=== PATIENT | female | born 1970 | race Caucasian/White ===

== ENCOUNTER → 2016-07-02 | Outpatient (CLI) | payer OTHER ==
[2016-07-02 12:48] LABS: BASOPHILS % (AUTO) 0.9 % (0-1); EOSINOPHILS # (AUTO) 0.46 10*3/UL; HEMATOCRIT 45.9 % (37.0-47.0); HEMOGLOBIN 14.7 g/dL (12.0-16.0); LYMPHOCYTES # (AUTO) 3.51 10*3/uL; MEAN CORPUSCULAR HEMOGLOBIN 25.4 PG (27-31); MEAN CORPUSCULAR VOLUME 79.3 FL (81-99); MEAN PLATELET VOLUME 9.3 FL (7.4-12.2); MONOCYTES # (AUTO) 0.85 10*3/UL (0.3-0.8); MONOCYTES % (AUTO) 7.3 % (5-15); NEUTROPHILS # (AUTO) 6.63 10*3/UL; NEUTROPHILS % (AUTO) 57.2 % (50-80); RED BLOOD COUNT 5.79 10^6/uL (4.20-5.40)
[2016-07-02 12:49] LABS: PLATELET MORPHOLOGY COMMENT NORMAL MORPHOLOGY (NORM); RBC MORPHOLOGY COMMENT NORMAL MORPHOLOGY (NORM); WBC MORPHOLOGY COMMENT NORMAL MORPHOLOGY (NORM)
[2016-07-02 13:49] LABS: BLOOD UREA NITROGEN 14 mg/dL (7-22); CALCIUM 9.2 mg/dL (8.7-10.7); CHOL/HDL RATIO 6.17 RATIO (0-4.0); EST GLOMERULAR FILTRATION > 60 (>60 ml/min/1.73m(2)); HDL CHOLESTEROL 41 mg/dL (40-150); SERUM ALBUMIN 4.1 g/dL (3.5-4.8); SERUM CHOLESTEROL 253 mg/dL (120-200)
== END ==
LOC: MOB LAB 11:42
DX: E66.01 Morbid (severe) obesity due to excess calories (principal); G47.33 Obstructive sleep apnea (adult) (pediatric); E55.9 Vitamin D deficiency, unspecified; R73.9 Hyperglycemia, unspecified
CPT/HCPCS: 36415; 80053; 80061; 82306; 82533; 83036; 84443; 85025

== ENCOUNTER 2016-07-03 21:37 | Emergency (ER) | payer OTHER ==
[2016-07-03] MEDS ORDERED: IPRATROPIUM/ALBUTEROL SULFATE 3 ML NEB NEB ONE (21:59)
[2016-07-03 22:30] LABS: BASOPHILS # (AUTO) 0.12 10*3/UL; BASOPHILS % (AUTO) 0.9 % (0-1); EOSINOPHILS # (AUTO) 0.51 10*3/UL; EOSINOPHILS % (AUTO) 3.8 % (0-8); HEMATOCRIT 42.1 % (37.0-47.0); HEMOGLOBIN 13.7 g/dL (12.0-16.0); LYMPHOCYTES # (AUTO) 4.92 10*3/uL; MEAN CORPUSCULAR HEMOGLOBIN 25.8 PG (27-31); MEAN CORPUSCULAR HGB CONC 32.5 g/dL (33-37); MEAN CORPUSCULAR VOLUME 79.3 FL (81-99); MEAN PLATELET VOLUME 9.1 FL (7.4-12.2); MONOCYTES # (AUTO) 0.98 10*3/UL (0.3-0.8); MONOCYTES % (AUTO) 7.4 % (5-15); NEUTROPHILS # (AUTO) 6.69 10*3/UL; NEUTROPHILS % (AUTO) 50.4 % (50-80); PLATELET MORPHOLOGY COMMENT NORMAL MORPHOLOGY (NORM); RBC MORPHOLOGY COMMENT NORMAL MORPHOLOGY (NORM); RED BLOOD COUNT 5.31 10^6/uL (4.20-5.40); WBC MORPHOLOGY COMMENT NORMAL MORPHOLOGY (NORM)
[2016-07-03 22:41] LABS: BLOOD UREA NITROGEN 12 mg/dL (7-22); BUN/CREATININE RATIO 17.14 (6-20); CALCIUM 9.1 mg/dL (8.7-10.7); EST GLOMERULAR FILTRATION > 60 (>60 ml/min/1.73m(2)); SERUM ALBUMIN 3.9 g/dL (3.5-4.8)
[2016-07-04] MEDS ORDERED: AZITHROMYCIN 250 MG TABLET PO SCH (00:15)
[2016-07-04 02:07] VITALS: RESP 16; TEMP 97.4
--- NOTE | 2016-07-04 02:20 | EKG ---
[address] [address] Measurements Intervals [place] Rate: 88 P: 42 IN: 164 QRS: -13 QRSD: 89 T: 62 QT: 371 QTc: 417 Interpretive Statements SINUS RHYTHM WITH FREQUENT SUPRAVENTRICULAR PREMATURE COMPLEXES LOW QRS VOLTAGE IN PRECORDIAL LEADS [QRS DEFLECTION < 1.0 mV IN CHEST LEADS] NONSPECIFIC T-WAVE ABNORMALITY ABNORMAL RHYTHM ECG No previous ECG available for comparison Electronically Signed On 07-04-16 12:18:54 MDT by Trav Pizarro MD [email or web address]
--- NOTE | 2016-07-04 02:37 | PDOC ---
General Adult HPI - General Chief Complaint: General Medical Stated Complaint: Dizziness/Shortness of Breath Date Seen by Provider: 07/03/16 Time Seen by Provider: 21:40 Source: POSITIVE: Patient Exam Limitations: POSITIVE: No limitations Nurse's Notes Reviewed & Considered: Yes - History of Present Illness Initial Comment: The patient is a 46 year old female. She states that for the past 2 days she has had had a "dizzy feeling"and has felt short of breath. She states that she has had periods when she has felt "forget full and the tach". She denies any head chest or abdominal pain. No wheezing. She has had a cough. She has smoked for most of her daughter and continues to smoke a half a pack of cigarettes per day. No fevers or chills or hemoptysis. Have you received a tetanus shot in the past 10 years?: Yes Body Location Affected: REPORTS: Chest (Cough and shortness of breath), Other ( As above) Timing: REPORTS: Constant Duration: >24 hours (Approximately 2 days) Severity: Moderate Quality: REPORTS: Other (Patient denies any pain anywhere) Context: REPORTS: None Modifying Factors: improves with: Coughing Similar Symptoms Previously: No Recent Care Received: REPORTS: Denies Any Prior Injuries Related to Current Complaint?: No - Patient Home Medications Home Medications: Home Medications Venlafaxine HCl [Effexor Xr] 1 cap PO QD #90 cap 07/02/16 Ferrous Sulfate [Iron] 1 tab PO BID #60 cap 07/03/16 Azithromycin [Zithromax] 500 mg PO DAILY #5 tab 07/04/16 - Patient Allergies Allergies/Adverse Reactions: Allergies Allergy/AdvReac Type Severity Reaction Status Date / Time Penicillins AdvReac Intermediate Unverified 07/02/16 09:54 Past Medical History - heen HEENT History: Denies History Cardiovascular History: Denies History Respiratory History: Denies History Gastrointestinal History: Other (please comment) Additional Gastrointestinal History: Hx of cholecystectomy. Genitourinary History: Denies History Endocrine History: Denies History Musculoskeletal History: Denies History Neurological History: Denies History Blood Disorders: Denies History Psychiatric History: Depression Female Reproductive History: Hysterectomy, Other (please comment) Additional Female Reproductive History: Hx of partial hysterectomy. Hx of tubal ligation. Obstetrical History: Denies History Cancer History: Denies History In Past Year Been Physically Harmed or Verbally Threatened: No History of MDRO: No Tobacco Use: Current Every Day Smoker Alcohol Use: Occasionally Substance Use Type: Marijuana Previous Surgical History: Yes Type / Date of Surgery: Listed above. Significant Family History: No pertinent family hx Past Medical History Reviewed: Reviewed - No Changes ROS - Limitations ROS Limitations: No Limitations Constitution: REPORTS: Other (Dizziness, "feeling forgetful and detached".) Cardiovascular: REPORTS: Denies Cardiac Symptoms Respiratory: REPORTS: Cough Non Productive, Shortness Of Breath Neurological: REPORTS: Denies Neuro Symptoms Gastrointestinal: REPORTS: Denies GI Symptoms Endocrine: REPORTS: Denies Symptoms Musculoskeletal: REPORTS: Denies MS Symptoms Genitourinary: REPORTS: Denies Symptoms Eyes: REPORTS: Denies Symptoms ENT: REPORTS: Denies Symptoms Skin: REPORTS: Denies Skin Symptoms Lympathic: REPORTS: Denies Lympathic Symptoms Immunologic: POSITIVE: Denies Symptoms Psychiatric: POSITIVE: Denies Psych Symptoms General Adult Exam - General Appearance General Appearance: POSITIVE: Alert, Cooperative, No Acute Distress, No Evidence of Trauma, Other (Obese) - HEENT HEENT: POSITIVE: Head Inspection Nml, Eyes Inspection Nml, Ears Inspection Nml, Nose Inspection Nml, Oral/Dental Inspect. Nml, Pharynx Inspect. Nml, PERRL, EOMI - Pupils Pupil Size: 3 mm: Bilateral (PERRLA) - Neck Neck: POSITIVE: Normal Inspection, Thyroid Normal - Respiratory Respiratory: POSITIVE: No Respiratory Distress, Chest Non-Tender, Rhonchi. NEGATIVE: Breath Sounds Normal - Cardiovascular Cardiovascular: POSITIVE: No Murmur, No Gallop, PMI Normal, Occasional Extrasystoles (PACs). NEGATIVE: Regular Rate & Rhythm (Occasional PACs), Decreased Pulse, No Pulse, Irregularly Irreg. Rhythm, Tachycardia Peripheral Pulses: Radial (R): 2+, Radial (L): 2+ - Abdomen Abdomen: Soft: (All Quadrants), Normal Bowel Sounds: (All Quadrants), Denies Tenderness: (All Quadrants), No Splenomegaly: (All Quadrants), No Hepatomegaly: (All Quadrants), No Guarding: (All Quadrants), No Rebound: (All Quadrants), No Palpable Pulse: (All Quadrants), No Palpabale Mass: (All Quadrants), No Distention: (All Quadrants), No Rigidity: (All Quadrants) - Back Back: POSITIVE: Normal Inspection - Skin Skin: POSITIVE: Normal Color, Warm, Dry, No Rash - Extremities Extremity: Non-Tender: (All Extremities), Normal ROM: (All Extremities), Normal Inspection: (All Extremities) - Neurological / Psychological Neurological: POSITIVE: Oriented X3, 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 Lab Results Reviewed: Yes (White blood cell count 13,270) Lab Results:: Laboratory Results 07/03/16 Range/Units 22:27 WBC 13.27 H (4.8-10.8) 10^3/uL RBC 5.31 (4.20-5.40) 10^6/uL Hgb 13.7 (12.0-16.0) g/dL Hct 42.1 (37.0-47.0) % MCV 79.3 L (81-99) FL MCH 25.8 L (27-31) PG MCHC 32.5 L (33-37) g/dL RDW Std Deviation 49.0 (39-50) fL RDW Coeff of Pj 17.1 H (11.5-14.5) % Plt Count 370 H (140-350) 10*3/uL MPV 9.1 (7.4-12.2) FL Immature Gran % (Auto) 0.4 (0-5) % Neut % (Auto) 50.4 (50-80) % Lymph % (Auto) 37.1 (10-50) % [place] % (Auto) 7.4 (5-15) % Eos % (Auto) 3.8 (0-8) % Baso % (Auto) 0.9 (0-1) % Immature Gran # (Auto) 0.05 10*3/UL Neut # (Auto) 6.69 10*3/UL Lymph # (Auto) 4.92 10*3/uL [place] # (Auto) 0.98 H (0.3-0.8) 10*3/UL Eos # (Auto) 0.51 10*3/UL Baso # (Auto) 0.12 10*3/UL WBC Morphology Comment Normal morphology (NORM) Plt Morphology Comment Normal morphology (NORM) RBC Morph Comment Normal morphology (NORM) D-Dimer 0.43 (0.00-0.59) mg/L Sodium 136 (135-145) meq/L Potassium 4.0 (3.8-5.2) meq/L Chloride 103 (98-112) meq/L Carbon Dioxide 24 (23-33) meq/L Anion Gap 9 (5-20) BUN 12 (7-22) mg/dL Creatinine 0.7 (0.50-1.20) mg/dL Estimated GFR > 60 (>60 ml/min/1.73m(2)) BUN/Creatinine Ratio 17.14 (6-20) Glucose 110 (78-110) mg/dL Calculated Osmolality 282.0 (267-292) mOsm/kg Calcium 9.1 (8.7-10.7) mg/dL Total Bilirubin 0.5 (0.3-1.2) mg/dL AST 52 H (8-39) IU/L ALT 49 (9-52) IU/L Alkaline Phosphatase 89 (38-126) IU/L CK-MB (CK-2) 1.56 (0.00-5.00) NG/ML Troponin I < 0.012 (< 0.040) ng/mL NT-Pro-B Natriuret Pep 39.9 (0-125) PG/ML Total Protein 7.0 (6.1-8.0) g/dL Albumin 3.9 (3.5-4.8) g/dL Globulin 3.2 (2.50-4.10) g/dL Albumin/Globulin Ratio 1.20 L (1.3-2.0) mg/g EKG Interpreted/Reviewed By Me:: Yes (PACs) EKG Interpretation:: POSITIVE: Normal Rate, Normal Intervals, Normal [place]abella, Normal QRS, Normal ST/T. NEGATIVE: Normal Sinus Rhythm (Normal sinus rhythm with PACs) - Patient's Progress Pain Medication Addressed: POSITIVE: Not Applicable School/Work Release Addressed: POSITIVE: Not Applicable Re-Examine Time: 23:45 Re-Examine Comment: Patient given DuoNeb treatment with good clearing of lungs and patient feels improved. Patient given 500 mg of Zithromax by mouth in the emergency room. Discharged with prescription for Zithromax 500 mg for a total 5 days. Status: POSITIVE: Improved, Re-Examined Antibiotics Given: Yes (Zithromax 500 mg daily) - Consult Counseled: POSITIVE: Patient, RE: Lab Results, RE: Radiology Results, RE: DX, RE : Need for F/U Patient Care Time - Estimated PCT Patient Care Time (In Minutes): 50 Vital Signs - Recent Vital Signs Vital Signs: Vital Signs (Last 8 hours) Temp Pulse Pulse Resp BP BP Pulse Ox 07/04/16 00:31 84 16 141/88 93 07/03/16 21:37 97.4 F 95 16 148/102 84 - VS Reviewed Vital Signs Reviewed: Yes Discharge Clinical Impression: Bronchitis, COPD (chronic obstructive pulmonary disease), Tobacco abuse Discharge Disposition: Discharged to Home Condition: Stable Prescriptions / Orders: Azithromycin [Zithromax] 500 mg PO DAILY #5 tab Patient Instructions Given at Discharge: How to Stop Smoking (ED), Acute Bronchitis (ED), COPD (Chronic Obstructive Pulmonary Disease) (ED) Additional Instructions: Please stop smoking. Zithromax, one every day until gone. Increase fluids. Follow-up with your primary care provider. Return here anytime if condition worsens. Your chest x-ray probably show some early chronic obstructive pulmonary disease, which is due to your smoking. Follow Up With: MIKE PATEL [Primary Care Provider] - (Instructions as above. Follow-up with your primary care provider. Return here anytime if condition worsens.)
--- NOTE | 2016-07-04 09:00 | DI ---
PA /LATERAL CHEST X-RAY, 07/03/2016 9:55 PM : Clinical History: Dyspnea. Previous Exam: None at this facility. There is no acute soft tissue or bony abnormality. Heart size is normal. Lungs are clear. Mediastinal structures are normal. There are no pulmonary nodules. IMPRESSION: Normal chest x-ray.
== END 2016-07-04 00:31 | disposition home or self-care (01) ==
LOC: ER 21:37
DX: J44.0 Chronic obstructive pulmonary disease with (acute) lower respiratory infection (principal); J20.9 Acute bronchitis, unspecified; R06.02 Shortness of breath; R05 Cough; Z72.0 Tobacco use
CPT/HCPCS: 71020; 80053; 82553; 83880; 84484; 85025; 85379; 93005; 93010; 94640; 99284 ×2; J7620

== ENCOUNTER → 2016-07-30 | Outpatient (CLI) | payer OTHER ==
--- NOTE | 2016-08-04 18:54 | HOLTER ---
[facility] [place] Pt quit smoking 1 month ago. Prior to that Half pack per day x 24 years This is a 48 hour Holter study done for "palpitations." The patient diary reports 9 episodes of mostly "chest pain" and "left arm pain" with 5 of those correlating with NSR at rates from 75 to 108 with singlet APCs. The other 4 patient triggered sánchez on the tracings were NSR without ectopics. There were a total of 236,290 recorded beats with 15,877 possible atrial ectopics, all being singlets but some in trigeminal patterns. The computer read atrial fibrillation for most of the trigeminal episodes but no true atrial fibrillation was found. There were 419 possible ventricular ectopics all being singlets as well. There were no significant bradycardias and the maximal tachycardia was 139 BPM at 7:37 PM day 1. The longest tachycardia was 3 minutes at 131 BPM at 7:41 PM day 1 (no sympmtoms reported). ST analysis was within normal limits. IMPRESSION: Abnormal Holter study for frequent APCs with partial correlation but reported with "chest pain" rather than palpitations. Electronically Signed On 08-05-16 09:32:22 MDT by Trav Pizarro MD [id number]
== END ==
LOC: EKG 17:01
DX: R00.2 Palpitations (principal); Z87.891 Personal history of nicotine dependence
CPT/HCPCS: 93225; 93226; 93227

== ENCOUNTER → 2016-08-03 | Outpatient (CLI) | payer OTHER | LOC: LAB 07:48 | DX: R53.82 Chronic fatigue, unspecified (principal) | CPT/HCPCS: 36415; 82024; 82533 ==